=== PATIENT | female | born 1985 | race Caucasian/White ===

== ENCOUNTER 2019-09-19 13:24 | Emergency (ER) | payer SELFPAY ==
[2019-09-19] MEDS ORDERED: LIDOCAINE 5% (700 MG) TRANSDERMAL ADH..PATCH TP ONE ×2 (13:39→17:30)
--- NOTE | 2019-09-19 13:43 | ER Document Report ---
ED Medical Screen (RME) - General Chief Complaint: Numbness of Arm Stated Complaint: LEFT ARM NUMBNESS,FACIAL NUMBNESS Time Seen by Provider: 09/19/19 13:33 Primary Care Provider: ANA PANG PA-C [Primary Care Provider] - Follow up as needed Mode of Arrival: Ambulatory Information source: Patient Notes: 34-year-old female presents with complaints of left arm numbness left upper chest tenderness. She also reports some shortness of breath. Patient reports that she started feeling symptoms 1 week ago when she was just sitting on the couch. Denies trauma. Reports her arm just started hurting. She denies history of cardiac disease asthma. She reports her father had an NV when he was in his late 20s. Patient is left-handed. She works as a johnson. Left upper chest left side of her neck is very tender to palpate. She did go to urgent care and they sent her here. I have greeted and performed a rapid initial assessment of this patient. A comprehensive ED assessment and evaluation of the patient, analysis of test results and completion of the medical decision making process will be conducted by additional ED providers. TRAVEL OUTSIDE OF THE [place] IN LAST 30 DAYS: No - Related Data Allergies/Adverse Reactions: codeine [Codeine] Allergy (Intermediate, Verified 10/19/16 19:22) rash latex [Latex] Allergy (Verified 10/19/16 19:22) Past Medical History - Social History Frequency of alcohol use: Occasional Drug Abuse: None - Past Medical History Cardiac Medical History: Denies: Hx Coronary Artery Disease, Hx Heart Attack, Hx Hypertension Pulmonary Medical History: Denies: Hx Asthma, Hx Pneumonia Neurological Medical History: Denies: Hx Cerebrovascular Accident, Hx Seizures Renal/ Medical History: Denies: Hx Peritoneal Dialysis Malignancy Medical History: Reports: Hx Cervical Cancer - not cancer, dysplasia - patient is now s/p LEEP procedure Musculoskeltal Medical History: Denies Hx Arthritis Psychiatric Medical History: Reports: Hx Anxiety, Hx Bipolar Disorder, Hx Depression Past Surgical History: Reports: Hx Cholecystectomy, Hx Gynecologic Surgery - LEEP x2, Hx Tonsillectomy. Denies: Hx Hysterectomy, Hx Pacemaker - Immunizations Immunizations up to date: Yes Hx Diphtheria, Pertussis, Tetanus Vaccination: Yes Physical Exam - Vital signs Vitals: Temp Pulse Resp BP Pulse Ox 98.1 F 75 16 126/89 H 98 09/19/19 13:32 09/19/19 13:32 09/19/19 13:32 09/19/19 13:32 09/19/19 13:32 Course - Vital Signs Vital signs: Temp Pulse Resp BP Pulse Ox 98.1 F 75 16 126/89 H 98 09/19/19 13:32 09/19/19 13:32 09/19/19 13:32 09/19/19 13:32 09/19/19 13:32 Doctor's Discharge - Discharge Referrals: ANA PANG PA-C [Primary Care Provider] - Follow up as needed
[2019-09-19 14:44] LABS: ABSOLUTE EOSINOPHILS # (AUTO) 0.2 10^3/uL (0.0-0.6); ABSOLUTE LYMPHOCYTES (AUTO) 3.3 10^3/uL (0.5-4.7); ABSOLUTE MONOCYTES (AUTO) 0.6 10^3/uL (0.1-1.4); ABSOLUTE NEUT (AUTO) 7.8 10^3/uL (1.7-8.2); BASOPHILS % (AUTO) 0.3 % (0-2); HEMATOCRIT 43.6 % (36.0-47.0); HEMOGLOBIN 14.8 g/dL (12.0-15.5); LYMPHOCYTES % (AUTO) 27.7 % (13-45); MEAN CORPUSCULAR HGB CONC 33.9 g/dL (32.0-36.0); MEAN CORPUSCULAR VOLUME 89 fl (80-97); PLATELET COUNT 443 10^3/uL (150-450); RED BLOOD COUNT 4.92 10^6/uL (3.72-5.28); RED CELL DISTRIBUTION WIDTH 13.5 % (11.5-14.0); TOTAL CELLS COUNTED % (AUTO) 100 %; WHITE BLOOD COUNT 12.1 10^3/uL (4.0-10.5)
[2019-09-19 15:03] LABS: APPEARANCE,URINE CLEAR; BILIRUBIN,URINE NEGATIVE (NEGATIVE); COLOR,URINE YELLOW; GLUCOSE, URINE NEGATIVE (NEGATIVE); KETONES,URINE NEGATIVE (NEGATIVE); LEUKOCYTE ESTERASE,URINE MODERATE (NEGATIVE); NITRITE,URINE NEGATIVE (NEGATIVE); PROTEIN,URINE NEGATIVE (NEGATIVE); URINE SPECIFIC GRAVITY 1.016; UROBILINOGEN,URINE NEGATIVE mg/dL (<2.0)
[2019-09-19 15:04] LABS: ALBUMIN 4.1 g/dL (3.5-5.0); ALKALINE PHOSPHATASE 53 U/L (38-126); ANION GAP 10 (5-19); ASPARTATE AMINO TRANSFERASE 25 U/L (14-36); BILIRUBIN,DIRECT 0.3 mg/dL (0.0-0.4); BILIRUBIN,TOTAL 0.4 mg/dL (0.2-1.3); BLOOD UREA NITROGEN 9 mg/dL (7-20); CALCIUM 9.2 mg/dL (8.4-10.2); CARBON DIOXIDE 29 mmol/L (22-30); CHLORIDE 102 mmol/L (98-107); GLUCOSE 79 mg/dL (75-110); POTASSIUM 3.7 mmol/L (3.6-5.0); TOTAL PROTEIN 7.5 g/dL (6.3-8.2)
--- NOTE | 2019-09-19 15:04 | RADIOLOGY REPORT (SQ) ---
EXAM DESCRIPTION: CHEST 2 VIEWS COMPLETED DATE/TIME: 09/19/2019 2:12 pm REASON FOR STUDY: sob COMPARISON: 08/15/2014 EXAM PARAMETERS: NUMBER OF VIEWS: two views TECHNIQUE: Digital Frontal and Lateral radiographic views of the chest acquired. RADIATION DOSE: NA LIMITATIONS: none FINDINGS: LUNGS AND PLEURA: Right infrahilar density is suggested, may represent infiltrate. The l eft lung remains clear. No pneumothorax or pleural effusion. MEDIASTINUM AND HILAR STRUCTURES: No masses or contour abnormalities. HEART AND VASCULAR STRUCTURES: Stable appearance. No evidence for failure. BONES: No acute findings. HARDWARE: None in the chest. OTHER: No other significant finding. IMPRESSION: 1. Right infrahilar density is suggested, may represent infiltrate. TECHNICAL DOCUMENTATION: JOB ID: [id number] 2010 [employer]- All Rights Reserved Reading location - IP/workstation name: [email or web address]
--- NOTE | 2019-09-19 17:28 | EKG REPORT ---
SEVERITY:- NORMAL ECG - SINUS RHYTHM : Confirmed by: Lawrence Thomas MD 19-Sep-2019 17:28:21
[2019-09-19] MEDS ORDERED: HYDROCODONE/ACETAMINOPHEN 5-325 MG (6 TAB/ER DISP) PO PRN ×2 (17:49→20:21)
--- NOTE | 2019-09-19 17:56 | ER Document Report ---
ED General - General Chief Complaint: Numbness of Arm Stated Complaint: LEFT ARM NUMBNESS,FACIAL NUMBNESS Time Seen by Provider: 09/19/19 13:33 Primary Care Provider: ANA PANG PA-C [Primary Care Provider] - Follow up as needed Mode of Arrival: Ambulatory TRAVEL OUTSIDE OF THE [place] IN LAST 30 DAYS: No - HPI Notes: Patient is a 34-year-old female who presents emergency department for evaluation of left neck, chest, arm pain and numbness. She states she said the pain for about 2 weeks. Hurts to move her neck, to touch the area. She denies any i njury. She states her last 24 hours her arms felt numb. She denies any injury. She states she got sweaty when her pain was severe, but denies any associated nausea, near syncope, dyspnea. - Related Data Allergies/Adverse Reactions: codeine [Codeine] Allergy (Intermediate, Verified 10/19/16 19:22) rash latex [Latex] Allergy (Verified 10/19/16 19:22) Past Medical History - General Information source: Patient - Social History Smoking Status: Current Every Day Smoker Frequency of alcohol use: Occasional Drug Abuse: None Family History: Arthritis, CAD, COPD, CVA, DM, Hyperlipidemia, Hypertension, Malignancy, Thyroid Disfunction, Other - chf Patient has suicidal ideation: No Patient has homicidal ideation: No - Past Medical History Cardiac Medical History: Denies: Hx Coronary Artery Disease, Hx Heart Attack, Hx Hypertension Pulmonary Medical History: Denies: Hx Asthma, Hx Pneumonia Neurological Medical History: Denies: Hx Cerebrovascular Accident, Hx Seizures Renal/ Medical History: Denies: Hx Peritoneal Dialysis Malignancy Medical History: Reports: Hx Cervical Cancer - not cancer, dysplasia - patient is now s/p LEEP procedure Musculoskeletal Medical History: Denies Hx Arthritis Psychiatric Medical History: Reports: Hx Anxiety, Hx Bipolar Disorder, Hx Depression Past Surgical History: Reports: Hx Cholecystectomy, Hx Gynecologic Surgery - LEEP x2, Hx Tonsillectomy. Denies: Hx Hysterectomy, Hx Pacemaker - Immunizations Immunizations up to date: Yes Hx Diphtheria, Pertussis, Tetanus Vaccination: Yes Review of Systems - Review of Systems Cardiovascular: See HPI Neurological/Psychological: See HPI -: Yes All other systems reviewed and negative Physical Exam - Vital signs Vitals: Pulse Resp BP Pulse Ox 75 16 126/89 H 98 09/19/19 13:25 09/19/19 13:25 09/19/19 13:25 09/19/19 13:25 - Notes Notes: This is a 34-year-old female lying comfortably in the bed. She appears her stated age in no acute distress. She has lidocaine patches over her anterior neck, including her sternocleidomastoid muscle. Vital signs reviewed, please refer to chart. Head is normocephalic, atraumatic. Pupils equal round, reactive to light. Neck is without meningismus. No overlying skin changes, but patient is exquisitely tender overlying the clavicle, overlying the sternocleidomastoid muscle, overlying all of the paraspinal musculature on the left cervical spine. I am unable to deep palpate for muscular tension secondary to her level of pain. Patient is full range of motion of the shoulder, elbow, wrist, fingers, thumb. She reports diminished sensation to light touch throughout the arm, but radial pulse is 2+, capillary refill is brisk. Heart is regular rate and rhythm. Lungs are clear to auscultation bilaterally. Abdomen is soft, nontender, normoactive bowel sounds throughout. Extremities without cyanosis, clubbing. Posterior calves are nontender. Peripheral pulses are equal. Skin is warm and dry. Patient is awake, alert, neurological exam is nonfocal. Course - Re-evaluation Re-evalutation: 09/19/19 17:55 Patient presents to the emergency department for evaluation. She complains of left-sided chest, neck, arm pain. Her pain is reproducible. Is been present for over 2 weeks. Her labs are unremarkable for any signs of cardiac troponin elevation. Her EKG shows no changes. Her pain is most consistent with musculoskeletal pain. I will send her home with a small amount of pain medica tion. We will send her home on prescription strength anti-inflammatories and muscle relaxers. She is warned the muscle relaxers can make her drowsy. She is resting comfortably in the bed, her work appears unremarkable. She is to follow-up with primary care, return to the ED with worsening concerning symptoms of any sort. 09/19/19 18:01 In regards to the abnormality on her x-ray, I do not suspect a pneumonia. The patient does not have any coughing. She does not have any right-sided chest pa in. She is not short of breath, has had no fevers. I explained to the patient that this should be followed up. I recommended a repeat x-ray in 2 to 4 weeks. I encouraged her to continue her efforts to quit smoking. She voiced understanding to this. - Vital Signs Vital signs: Temp Pulse Resp BP Pulse Ox 98.1 F 75 16 126/89 H 98 09/19/19 13:32 09/19/19 13:32 09/19/19 13:32 09/19/19 13:32 09/19/19 13:32 - Laboratory Result Diagrams: 09/19/19 14:23 09/19/19 14:23 Laboratory results interpreted by me: 09/19/19 09/19/19 14:23 14:23 WBC 12.1 H Ur Leukocyte Esterase MODERATE H - Diagnostic Test Radiology reviewed: Reports reviewed Radiology results interpreted by me: 09/19/19 17:56 Chest X-Ray 09/19/19 13:39 IMPRESSION: 1. Right infrahilar density is suggested, may represent infiltrate. Discharge - Discharge Clinical Impression: Chest wall pain, Abnormal chest x-ray, Cervical radiculopathy Condition: Stable Disposition: HOME, SELF-CARE Instructions: Chest Wall Pain ([facility]), Anti-Inflammatory Medication ([facility]), Muscle Relaxers ([facility]) Additional Instructions: Your findings are most consistent with musculoskeletal chest and neck pain. Please take anti-inflammatories and muscle relaxers as directed. Watch for dizziness and drowsiness with the muscle relaxers. There was an abnormality seen on your chest x-ray. Please have your chest x-ray repeated in 2 to 4 weeks and follow-up with your doctor in regards to this. Return to the emergency department with worsening or new concerning symptoms of any sort. Referrals: ANA PANG PA-C [Primary Care Provider] - Follow up as needed
[2019-09-19 18:44] VITALS: BP 135/76
--- NOTE | 2019-09-19 20:26 | ER Document Report ---
Doctor's Note Notes: 09/19/19 20:23 RN was supposed to discharge the patient with [place] [facility]. Patient was discharged, but med was not given for home use. Patient was called back and initially said they were not going to come back for the medicine, so RN returned the medicine. Now patient is coming back for meds and RN cannot retrieve me dicine back out of the [facility]. Rewrote for the medicine. able bodied tankerman is verifying [facility] information.
== END 2019-09-19 22:35 | disposition left against medical advice (07) ==
LOC: ER 13:24
DX: M54.12 Radiculopathy, cervical region (principal); R07.89 Other chest pain; R91.8 Other nonspecific abnormal finding of lung field; M54.2 Cervicalgia; M79.602 Pain in left arm; R20.0 Anesthesia of skin; F17.200 Nicotine dependence, unspecified, uncomplicated; Z88.6 Allergy status to analgesic agent; Z88.5 Allergy status to narcotic agent; Z91.040 Latex allergy status
CPT/HCPCS: 36415; 71046; 80053; 81001; 81025; 84484; 85025; 93005; 93010; 99284

== ENCOUNTER 2020-01-17 11:05 | Emergency (ER) | payer SELFPAY ==
--- NOTE | 2020-01-17 12:36 | ER Document Report ---
ED ENT - General Chief Complaint: Sore Throat Stated Complaint: SORE THROAT Time Seen by Provider: 01/17/20 11:38 Primary Care Provider: ANA PANG PA-C [Primary Care Provider] - Follow up as needed Notes: CHIEF COMPLAINT: Sore throat with subjective fevers HPI: 34-year-old female presenting to the emergency department for evaluation of possible sore throat with subjective fevers over the last 3 to 4 days. She developed swollen lymph node in the left neck today. Patient does state that a friend of hers that she stays with had spent the night with someone who ended up COVID positive last week and her friend has a sore throat. States the friend did have COVID testing but she does not know whether the patient tested positive or not and now she developed a sore throat as well. ROS: See HPI - all other systems were reviewed and are otherwise negative Constitutional: no fever Eyes: no drainage, no blurred vision ENT: no runny nose, + sore throat Cardiovascular: no chest pain Resp: no SOB, no cough GI: no vomiting, no diarrhea, no abdominal pain : no dysuria Integumentary: no rash Allergy: no hives Musculoskeletal: no extremity pain or swelling Neurological: no numbness/tingling, no weakness MEDICATIONS: I agree with the patient medications as charted by the RN. ALLERGIES: I agree with the allergies as charted by the RN. PAST MEDICAL HISTORY/PAST SURGICAL HISTORY: Reviewed and agree as charted by RN. SOCIAL HISTORY: Reviewed and agree as charted by RN. FAMILY HISTORY: No significant familial comorbid conditions directly related to patient complaint EXAM: Reviewed vital signs as charted by RN. CONSTITUTIONAL: Alert and oriented and responds appropriately to questions. Well-appearing; well-nourished HEAD: Normocephalic; atraumatic EYES: PERRL; Conjunctivae clear, sclerae non-icteric ENT: normal nose; no rhinorrhea; moist mucous membranes; pharynx without lesions noted, no uvula edema or deviation, no tonsillar hypertrophy, phonation normal NECK: Supple without meningismus; non-tender; positive left anterior cervical lymphadenopathy, no masses CARD: RRR; no murmurs, no clicks, no rubs, no gallops; symmetric distal pulses RESP: Normal chest excursion without splinting or tachypnea; breath sounds clear and equal bilaterally; no wheezes, no rhonchi, no rales, pulse oximetry 97% on room air not hypoxic ABD/GI: Normal bowel sounds; non-distended; soft, non-tender, no rebound, no guarding; no palpable organomegaly or masses. BACK: The back appears normal and is non-tender to palpation, there is no CVA tenderness EXT: Normal ROM in all joints; no cyanosis, no effusions, no edema SKIN: Normal color for age and race; warm; dry; good turgor; no acute lesions noted NEURO: Moves all extremities equally; Motor and sensory function intact PSYCH: The patient's mood and manner are appropriate. Grooming and personal hygiene are appropriate. MDM: 34-year-old female presenting for sore throat for 3 to 4 days with subjective fevers. Highest fever was 100.5. Patient does have left anterior lymphadenopathy but initial rapid strep was negative, likely a viral etiology. Patient does express desire for COVID testing and she may have been exposed. TRAVEL OUTSIDE OF THE [place] IN LAST 30 DAYS: No - Related Data Allergies/Adverse Reactions: codeine [Codeine] Allergy (Intermediate, Verified 10/19/16 19:22) rash latex [Latex] Allergy (Verified 10/19/16 19:22) Past Medical History - Social History Smoking Status: Former Smoker Family History: Arthritis, CAD, COPD, CVA, DM, Hyperlipidemia, Hypertension, Malignancy, Thyroid Disfunction, Other - chf Patient has homicidal ideation: No - Past Medical History Cardiac Medical History: Denies: Hx Coronary Artery Disease, Hx Heart Attack, Hx Hypertension Pulmonary Medical History: Denies: Hx Asthma, Hx Pneumonia Neurological Medical History: Denies: Hx Cerebrovascular Accident, Hx Seizures Renal/ Medical History: Denies: Hx Peritoneal Dialysis Malignancy Medical History: Reports: Hx Cervical Cancer - not cancer, dysplasia - patient is now s/p LEEP procedure Musculoskeletal Medical History: Denies Hx Arthritis Psychiatric Medical History: Reports: Hx Anxiety, Hx Bipolar Disorder, Hx Depression Past Surgical History: Reports: Hx Cholecystectomy, Hx Gynecologic Surgery - LEEP x2, Hx Tonsillectomy. Denies: Hx Hysterectomy, Hx Pacemaker - Immunizations Immunizations up to date: Yes Hx Diphtheria, Pertussis, Tetanus Vaccination: Yes Physical Exam - Vital signs Vitals: Temp Pulse Resp BP Pulse Ox 99.2 F 85 16 125/82 98 01/17/20 11:22 01/17/20 11:22 01/17/20 11:22 01/17/20 11:22 01/17/20 11:22 Course - Vital Signs Vital signs: Temp Pulse Resp BP Pulse Ox 99.2 F 85 16 125/82 98 01/17/20 11:46 01/17/20 11:22 01/17/20 11:22 01/17/20 11:22 01/17/20 11:22 Discharge - Discharge Clinical Impression: Viral pharyngitis, Person under investigation for COVID-19 Condition: Stable Disposition: HOME, SELF-CARE Additional Instructions: 1. Your rapid strep test today was negative this is likely a viral etiology 2. take Motrin/Tylenol consistently for pain and fever 3. hydrate well at home with fluids/juices 4. recheck with your PCP for further evaluation and treatment, call for appt. 5. return to the ED for any difficulty swallowing or worsening condition 6. warm salt water gargles for throat discomfort 3 times daily 7. You are considered a person under investigation at this time quarantine at home for the next 14 days or until you have a negative COVID test Forms: Return to Work Referrals: ANA PANG PA-C [Primary Care Provider] - Follow up as needed
[2020-01-17 13:27] VITALS: BP 126/78
== END 2020-01-17 13:26 | disposition home or self-care (01) ==
LOC: ER 11:05
DX: J02.9 Acute pharyngitis, unspecified (principal); R59.9 Enlarged lymph nodes, unspecified; Z20.828 Contact with and (suspected) exposure to other viral communicable diseases; R50.9 Fever, unspecified
CPT/HCPCS: 99283; 36415; 87070; 87880; 87635; C9803

== ENCOUNTER 2020-06-12 19:09 | Emergency (ER) | payer SELFPAY ==
[2020-06-12 20:56] LABS: ABSOLUTE BASOPHILS # (AUTO) 0.1 10^3/uL (0.0-0.2); ABSOLUTE EOSINOPHILS # (AUTO) 0.2 10^3/uL (0.0-0.6); ABSOLUTE LYMPHOCYTES (AUTO) 3.4 10^3/uL (0.5-4.7); ABSOLUTE MONOCYTES (AUTO) 0.8 10^3/uL (0.1-1.4); BASOPHILS % (AUTO) 0.4 % (0-2); EOSINOPHILS % (AUTO) 1.2 % (0-6); HEMATOCRIT 43.4 % (36.0-47.0); HEMOGLOBIN 14.9 g/dL (12.0-15.5); LYMPHOCYTES % (AUTO) 27.4 % (13-45); MEAN CORPUSCULAR HGB CONC 34.3 g/dL (32.0-36.0); MEAN CORPUSCULAR VOLUME 88 fl (80-97); MONOCYTES % (AUTO) 6.4 % (3-13); PLATELET COUNT 372 10^3/uL (150-450); RED BLOOD COUNT 4.96 10^6/uL (3.72-5.28); RED CELL DISTRIBUTION WIDTH 13.1 % (11.5-14.0); SEGMENTED NEUTROPHILS % (AUTO) 64.6 % (42-78); TOTAL CELLS COUNTED % (AUTO) 100 %; WHITE BLOOD COUNT 12.3 10^3/uL (4.0-10.5)
[2020-06-12 21:01] LABS: BLOOD UREA NITROGEN 6 mg/dL (7-20); CALCIUM 9.2 mg/dL (8.4-10.2); GLUCOSE 97 mg/dL (75-110)
[2020-06-12 21:02] LABS: ALBUMIN 3.8 g/dL (3.5-5.0); ALKALINE PHOSPHATASE 56 U/L (38-126); ANION GAP 9 (5-19); ASPARTATE AMINO TRANSFERASE 18 U/L (14-36); BILIRUBIN,TOTAL 0.3 mg/dL (0.2-1.3); CARBON DIOXIDE 23 mmol/L (22-30); CHLORIDE 105 mmol/L (98-107); POTASSIUM 3.7 mmol/L (3.6-5.0); TOTAL PROTEIN 6.9 g/dL (6.3-8.2)
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
[2020-06-12] MEDS ORDERED: FLUOXETINE HCL 20 MG CAPSULE PO ONE (21:09)
[2020-06-12] MEDS ORDERED: BUSPIRONE HCL 10 MG TABLET PO ONE (21:09)
[2020-06-12 21:11] LABS: ACETAMINOPHEN < 10 ug/mL (10-30); ALCOHOL < 10 mg/dL (NONE DETECTED); SALICYLATE < 1.0 mg/dL (2.0-20.0)
[2020-06-12 21:27] LABS: APPEARANCE,URINE SLIGHTLY-CLOUDY; BILIRUBIN,URINE NEGATIVE (NEGATIVE); COLOR,URINE YELLOW; GLUCOSE, URINE NEGATIVE (NEGATIVE); KETONES,URINE TRACE mg/dL (NEGATIVE); LEUKOCYTE ESTERASE,URINE MODERATE (NEGATIVE); NITRITE,URINE NEGATIVE (NEGATIVE); PROTEIN,URINE NEGATIVE (NEGATIVE); URINE SPECIFIC GRAVITY 1.014; UROBILINOGEN,URINE NEGATIVE mg/dL (<2.0)
[2020-06-12 21:41] LABS: URINE AMPHETAMINES SCREEN NEGATIVE; URINE BARBITURATES SCREEN NEGATIVE; URINE BENZODIAZEPINES SCREEN NEGATIVE; URINE COCAINE SCREEN NEGATIVE; URINE METHADONE SCREEN NEGATIVE; URINE PHENCYCLIDINE SCREEN NEGATIVE
[2020-06-12 21:45] LABS: URINE MARIJUANA (THC) SCREEN UNCONFIRMED POSITIVE
[2020-06-12 23:06] VITALS: BP 121/83
--- NOTE | 2020-06-13 18:11 | EKG REPORT ---
SEVERITY:- NORMAL ECG - SINUS RHYTHM : Confirmed by: Jeff Lew MD 13-Jun-2020 18:11:12
== END 2020-06-12 23:16 | disposition home or self-care (01) ==
LOC: ER 19:09
DX: F32.9 Major depressive disorder, single episode, unspecified (principal); S51.811A Laceration without foreign body of right forearm, initial encounter; X78.1XXA Intentional self-harm by knife, initial encounter; F17.200 Nicotine dependence, unspecified, uncomplicated; Z88.6 Allergy status to analgesic agent; Z91.040 Latex allergy status
CPT/HCPCS: 36415; 80053; 80307; 81001; 84703; 85025; 93005; 93010; 99284